=== PATIENT | male | born 1965 | race Caucasian/White ===

== ENCOUNTER 2017-01-29 09:37 | Inpatient (IN) | payer OTHER ==
[~2017-01-29] VITALS: Ht 185.4 cm; Wt 64.4 kg
[~2017-01-29 09:37] MED LIST: ASPIR 8181 MG PO; BACTRIM DS TAB1 EACH PO; COREG12.5 MG PO; DEMADEX10 MG PO; DEPAKOTE500 MG PO; EFFEXOR25 MG; HYDROXYZINE HCL10 M1; KLOR-CON 1010 MEQ PO; LATUDA40 MG PO; LIPITOR 20 MG T20 M1 PO; LISINOPRIL10 MG PO; LISINOPRIL2.5 MG PO; NEURONTIN100 MG PO; PACERONE 200 M200 M1 PO; REMERON15 MG PO; SIMVASTATIN40 MG PO; SPIRIVA INH; SYMBICORT160 MCG/4. INH; TYLENOL325 MG PO; VALIUM5 MG PO; VENLAFAXIN75 MG/1 T2 PO
[2017-01-29 09:38] VITALS: BP 118/78
[2017-01-29 10:55] LABS: HEMATOCRIT 35.4 % (42.0-52.0); HEMOGLOBIN 12.2 gm/dL (14.0-18.0); MCH 31.3 pg (26.0-34.0); MCHC 34.5 g/dL (28.0-37.0); MCV 90.8 fL (80.0-100.0); PLATELET COUNT 184 thou/uL (150-400); RDW 15.2 % (10.5-14.5); WBC 11.3 thou/uL (4.0-11.0)
[2017-01-29 10:58] LABS: MANUAL DIFF YES
[2017-01-29 10:59] LABS: ABG SAMPLE TYPE ARTERIAL; BE(vivo) 2.9 mmol/L (-2 to +3); HCO3 27.4 mmol/L (22.0-26.0); LACTATE 0.92 mmol/L (0.5-2.0); O2(CT) 13.6 mL/dL (15.0-23.0); O2Hb 78.8 % (92.0-98.0); PCO2 41.5 mmHg (35.0-45.0); PO2 45.4 mmHg (80.0-100.0); STICK SITE L.RADIAL; pH 7.437 (7.360-7.450); sO2 82.9 % (92.0-98.0); tCO2 28.6 mmol/L (24.0-30.0)
[2017-01-29 11:02] LABS: CALCIUM 8.5 mg/dL (8.5-10.1); CREATININE 0.7 mg/dL (0.7-1.3); POTASSIUM 3.6 mmol/L (3.5-5.1)
[2017-01-29 11:48] LABS: ABSOLUTE NEUTROPHILS 7.9 thou/uL (1.4-8.2); TOTAL CELL COUNT 100
[2017-01-29 11:49] LABS: ANISOCYTOSIS SLIGHT; POLYCHROMASIA OCCASIONAL
[2017-01-29 13:58] VITALS: BP 105/67
[2017-01-29 15:15] VITALS: BP 119/81
[2017-01-29 20:00] VITALS: BP 119/79
[2017-01-30 04:00] VITALS: BP 117/81
[2017-01-30 06:29] LABS: ALBUMIN 3.4 g/dL (3.4-5.0); CALCIUM 8.7 mg/dL (8.5-10.1); CREATININE 0.8 mg/dL (0.7-1.3); POTASSIUM 4.3 mmol/L (3.5-5.1); TOTAL BILIRUBIN 0.4 mg/dL (<0.1-1.0); TOTAL PROTEIN 7.1 g/dL (6.4-8.2)
[2017-01-30 07:30] VITALS: BP 117/76
[2017-01-30 15:30] VITALS: BP 113/73
[2017-01-31 04:58] VITALS: BP 114/72
[2017-01-31 08:00] VITALS: BP 106/71
[2017-01-31 16:00] VITALS: BP 104/61
[2017-01-31 19:40] VITALS: BP 95/61
[2017-02-01 03:40] VITALS: BP 104/66
[2017-02-01 07:55] VITALS: BP 91/48
[2017-02-01 15:21] VITALS: BP 105/59
[2017-02-01 19:15] VITALS: BP 116/85
[2017-02-02 04:00] VITALS: BP 101/68
[2017-02-02 07:10] VITALS: BP 99/70
[2017-02-02 16:03] VITALS: BP 96/61
[2017-02-02 20:00] VITALS: BP 93/55
[2017-02-03 04:00] VITALS: BP 115/84
[2017-02-03 07:26] VITALS: BP 116/77
[2017-02-03] MEDS ORDERED: BACTRIM DS TAB1 EACH PO (10:36)
[2017-02-03] MEDS ORDERED: MEDROL DOSPAK21 TA1 PO (10:38)
[2017-02-03] MEDS ORDERED: VENLAFAXIN75 MG/1 T2 PO (13:12)
[2017-02-03] MEDS ORDERED: SPIRIVA INH (13:12)
[2017-02-03] MEDS ORDERED: DEPAKOTE500 MG PO (13:12)
[2017-02-03] MEDS ORDERED: PACERONE 200 M200 M1 PO (13:12)
[2017-02-03] MEDS ORDERED: LATUDA40 MG PO (13:12)
[2017-02-03] MEDS ORDERED: REMERON15 MG PO (13:12)
[2017-02-03] MEDS ORDERED: COREG12.5 MG PO (13:12)
[2017-02-03] MEDS ORDERED: NEURONTIN100 MG PO (13:12)
[2017-02-03] MEDS ORDERED: SYMBICORT160 MCG/4. INH (13:12)
[2017-02-03] MEDS ORDERED: ASPIR 8181 MG PO (13:12)
[2017-02-03] MEDS ORDERED: LIPITOR 20 MG T20 M1 PO (13:12)
[2017-02-03 13:29] VITALS: BP 116/77
[2017-02-03 20:18] VITALS: BP 116/77
== END 2017-02-03 14:45 | disposition home or self-care (01) | DRG 189 ==
LOC: ER 09:37 → 3N 12:48 → EROBS 12:48 → 3N 13:58
PROVIDERS: Emergency Medicine; Family Medicine
DX: J96.01 Acute respiratory failure with hypoxia (principal); J44.0 Chronic obstructive pulmonary disease with (acute) lower respiratory infection; F20.0 Paranoid schizophrenia; J44.1 Chronic obstructive pulmonary disease with (acute) exacerbation; I10 Essential (primary) hypertension; F31.9 Bipolar disorder, unspecified; F10.10 Alcohol abuse, uncomplicated; Y90.0 Blood alcohol level of less than 20 mg/100 ml; F17.210 Nicotine dependence, cigarettes, uncomplicated; R91.8 Other nonspecific abnormal finding of lung field; F43.10 Post-traumatic stress disorder, unspecified; F15.10 Other stimulant abuse, uncomplicated; E78.5 Hyperlipidemia, unspecified; I95.9 Hypotension, unspecified; Z79.899 Other long term (current) drug therapy; Z88.0 Allergy status to penicillin; Z88.6 Allergy status to analgesic agent; Z88.8 Allergy status to other drugs, medicaments and biological substances; Z79.82 Long term (current) use of aspirin; Z59.0 Homelessness; Z71.6 Tobacco abuse counseling; Z86.010 Personal history of colon polyps; Z80.0 Family history of malignant neoplasm of digestive organs; Z80.1 Family history of malignant neoplasm of trachea, bronchus and lung; Z83.6 Family history of other diseases of the respiratory system; Z95.810 Presence of automatic (implantable) cardiac defibrillator
CPT/HCPCS: 10096